=== PATIENT | female | born 2000 | race Caucasian/White ===

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

== ENCOUNTER 2020-03-02 21:13 | Emergency (ER) | payer MEDICAID ==
[~2020-03-02] VITALS: Ht 162.6 cm; Wt 110.0 kg
[2020-03-02 21:33] VITALS: BP 130/84
--- NOTE | 2020-03-02 22:05 | NUR ---
pt to room from lobby
== END 2020-03-02 23:07 | disposition home or self-care (01) ==
LOC: ED 22:45
DX: H66.003 Acute suppurative otitis media without spontaneous rupture of ear drum, bilateral (principal)
CPT/HCPCS: 99283